=== PATIENT | female | born 1985 | race Two or more races ===

== ENCOUNTER 2017-12-26 17:47 | Emergency (ER) | payer OTHER ==
[~2017-12-26] VITALS: Ht 152.4 cm; Wt 74.8 kg
[~2017-12-26 17:47] MED LIST: NORG7TAB2 PO
[2017-12-26 17:57] VITALS: BP 135/91
--- NOTE | 2017-12-26 18:00 | NUR ---
PAIN AND SWELLING TO L BREAST X 2 MONTHS, UNRELIEVED WITH PO ANTIBIOTICS. NAD NOTED, VSS, RESP EVEN AND UNLABORED, PT ON MONITOR, WAITING FOR MD GREGORIO.
[2017-12-26] MEDS ORDERED: CEFTRIAXONE 1 G VIAL IM ONE (19:00)
[2017-12-26] MEDS ORDERED: CEFTRIAXONE 1 G VIAL ONE (19:08)
[2017-12-26] MEDS ORDERED: LIDOCAINE /MPF 1% VIAL 5 ML VIAL ONE (19:08)
== END 2017-12-26 19:19 | disposition home or self-care (01) ==
LOC: ER 18:01
DX: N61.0 Mastitis without abscess (principal)
CPT/HCPCS: A4606; J0696; J3490; Z7610